=== PATIENT | male | born 1970 | race Hispanic/Latino ===

== ENCOUNTER 2018-06-29 17:10 | Emergency (ER) | payer MEDICAID ==
[2018-06-29] MEDS ORDERED: LABETALOL 20 MG/4 ML DISP.SYRIN IV ONE (18:44)
== END 2018-06-29 20:41 | disposition home or self-care (01) ==
LOC: EDH 17:10
DX: S40.012A Contusion of left shoulder, initial encounter (principal); I10 Essential (primary) hypertension; V49.49XA Driver injured in collision with other motor vehicles in traffic accident, initial encounter; Y93.89 Activity, other specified; Y92.410 Unspecified street and highway as the place of occurrence of the external cause; Y99.8 Other external cause status
CPT/HCPCS: 72125; 96374

== ENCOUNTER 2021-07-18 22:25 | Emergency (ER) | payer MEDICAID ==
[~2021-07-18] VITALS: Ht 182.9 cm; Wt 97.5 kg
[2021-07-18] MEDS ORDERED: ONDANSETRON 4MG INJ ONE (22:37)
[2021-07-18] MEDS ORDERED: 0.9%NACL 1000ML 1,000 ML IV ONE (22:37)
[2021-07-18] MEDS ORDERED: ACETAMINOPHEN 500 MG TABLET ONE (22:37)
[2021-07-18 22:57] LABS: BASOPHILS % (AUTO) 0.4 % (0.0-5.0); EOSINOPHILS % (AUTO) 6.4 % (0.0-8.0); HEMATOCRIT 48.9 % (42-54); LYMPHOCYTES % (AUTO) 7.1 % (21.0-51.0); MEAN CORPUSCULAR HEMOGLOBIN 29.5 pg (27.0-33.0); MEAN CORPUSCULAR HGB CONC 32.9 g/dL (32.0-36.0); MEAN CORPUSCULAR VOLUME 89.7 fL (79-99); MONOCYTES % (AUTO) 6.6 % (3.0-13.0); NEUTROPHILS % (AUTO) 78.9 % (40.0-77.0); PLATELET COUNT (AUTO) 239 K/uL (130-400); RED BLOOD CELL COUNT(AUTO) 5.45 MIL/uL (4.50-6.20); RED CELL DISTRIBUTION WIDTH 12.9 % (11.0-15.5); WHITE BLOOD COUNT (AUTO) 8.2 K/uL (4.8-10.8)
[2021-07-18] MEDS ORDERED: CEFTRIAXONE 1G VIAL IVP ONE (23:00)
[2021-07-18] MEDS ORDERED: IBUPROFEN 600 MG TABLET PO ONE (23:00)
[2021-07-18] MEDS ORDERED: ALBUTEROL 0.083% 2.5 MG/3 ML INH IH ONE ×2 (23:00)
[2021-07-18] MEDS ORDERED: AZITHROMYCIN 250 MG TABLET PO ONE (23:00)
[2021-07-18] MEDS ORDERED: GUAIFENESIN-CODEINE 5 ML SYRUP PO ONE (23:00)
[2021-07-18] MEDS ORDERED: SOLU-MEDROL 125MG VIAL IVP ONE (23:00)
[2021-07-18] MEDS ORDERED: IPRATROPIUM/ALBUTEROL SULFATE 3 ML SOLUTION IH ONE (23:00)
[2021-07-18 23:11] LABS: CREATININE 0.9 mg/dL (0.5-1.5); POTASSIUM 4.1 mmol/L (3.5-5.1)
[2021-07-18 23:15] LABS: APPEARANCE,URINE Clear (CLEAR); BILIRUBIN,URINE Negative (NEGATIVE); COLOR,URINE Yellow (YELLOW); GLUCOSE, URINE (UA) Negative (NEGATIVE); KETONES,URINE Negative (NEGATIVE); LEUKOCYTE ESTERASE ,URINE Negative (NEGATIVE); NITRATE,URINE Negative (NEGATIVE); OCCULT BLOOD,URINE Negative (NEGATIVE); PH,URINE 6.5 (5.0-8.0); PROTEIN,URINE Negative (NEGATIVE); UROBILINOGEN,URINE 0.2 mg/dL (0.2-1.0)
[2021-07-18 23:20] LABS: ALBUMIN 3.3 g/dL (3.5-5.0); BILIRUBIN,TOTAL 0.5 mg/dL (0.2-1.0); TOTAL PROTEIN, SERUM 6.5 g/dL (6.0-8.3)
[2021-07-18] MEDS ORDERED: AMOX1TAB16 PO (23:28)
[2021-07-18] MEDS ORDERED: D-ME1POW16 PO (23:28)
[2021-07-18] MEDS ORDERED: PRED20TA3 PO (23:28)
[2021-07-18] MEDS ORDERED: ALBU8.5H8 IH (23:28)
[2021-07-18 23:57] VITALS: BP 138/79
[2021-07-20] MEDS ORDERED: BACI1CAP6 PO (15:35)
[2021-07-20] MEDS ORDERED: DICY20TA2 PO (15:35)
[2021-07-20] MEDS ORDERED: ONDA4TAB10 PO (15:35)
== END 2021-07-19 00:14 | disposition home or self-care (01) ==
LOC: EDH 22:25
DX: J40 Bronchitis, not specified as acute or chronic (principal); E86.0 Dehydration; R50.9 Fever, unspecified; F17.200 Nicotine dependence, unspecified, uncomplicated; I10 Essential (primary) hypertension; Z20.822 Contact with and (suspected) exposure to COVID-19
CPT/HCPCS: 36415; 71045; 80053; 81003; 83605; 84484; 85025; 87040 ×2; 87635; 87804 ×2; 87880; 94640; 96361; 96374; 96375; 99284; C9803; J0696; J2405; J2930; J7030

== ENCOUNTER 2021-07-20 13:16 | Emergency (ER) | payer MEDICAID ==
[~2021-07-20] VITALS: Ht 182.9 cm; Wt 98.0 kg
[~2021-07-20 13:16] MED LIST: ALBU8.5H8 IH; AMOX1TAB16 PO; D-ME1POW16 PO; PRED20TA3 PO
[2021-07-20 13:43] LABS: BASOPHILS % (AUTO) 0.2 % (0.0-5.0); EOSINOPHILS % (AUTO) 0.1 % (0.0-8.0); HEMATOCRIT 47.5 % (42-54); LYMPHOCYTES % (AUTO) 8.3 % (21.0-51.0); MEAN CORPUSCULAR HEMOGLOBIN 29.7 pg (27.0-33.0); MEAN CORPUSCULAR HGB CONC 33.5 g/dL (32.0-36.0); MEAN CORPUSCULAR VOLUME 88.6 fL (79-99); MONOCYTES % (AUTO) 7.3 % (3.0-13.0); NEUTROPHILS % (AUTO) 83.6 % (40.0-77.0); PLATELET COUNT (AUTO) 273 K/uL (130-400); RED BLOOD CELL COUNT(AUTO) 5.36 MIL/uL (4.50-6.20); WHITE BLOOD COUNT (AUTO) 13.1 K/uL (4.8-10.8)
[2021-07-20] MEDS: 0.9%NACL 1000ML 1,000 ML IV ONE (13:49)
[2021-07-20] MEDS: ONDANSETRON 4MG INJ ONE (13:49)
[2021-07-20 14:03] LABS: CARBON DIOXIDE 27 mmol/L (21-32); CHLORIDE 104 mmol/L (101-111); GLOMERULAR FILTR. RATE CALC 84 mL/min (>60); GLUCOSE,RANDOM 112 mg/dL (70-105); POTASSIUM 3.4 mmol/L (3.5-5.1); SODIUM SERUM 141 mmol/L (136-145); UREA NITROGEN, BLOOD 17 mg/dL (7-18)
[2021-07-20 14:08] LABS: ALANINE AMINOTRANSFERASE 32 U/L (12-78); ALBUMIN 3.3 g/dL (3.5-5.0); ASPARTATE AMINOTRANSFERASE 24 U/L (10-37); BILIRUBIN,TOTAL 0.4 mg/dL (0.2-1.0); TOTAL PROTEIN, SERUM 6.8 g/dL (6.0-8.3)
[2021-07-20 14:15] LABS: LIPASE < 50 U/L (114-286)
[2021-07-20] MEDS ORDERED: IOHEXOL-350 75 ML VIAL IV ONE (14:27)
[2021-07-20] MEDS: DICYCLOMINE 20MG (10MG/ML) AMP IM STA (14:32)
[2021-07-20] MEDS: PANTOPRAZOLE 40 MG/VIAL IVP ONE (14:33)
[2021-07-20] MEDS: MORPHINE 2 MG SYG IVP ONE (14:33)
[2021-07-20 14:52] LABS: APPEARANCE,URINE Clear (CLEAR); BILIRUBIN,URINE Negative (NEGATIVE); COLOR,URINE Yellow (YELLOW); GLUCOSE, URINE (UA) Negative (NEGATIVE); KETONES,URINE Trace mg/dL (NEGATIVE); LEUKOCYTE ESTERASE ,URINE Negative (NEGATIVE); NITRATE,URINE Negative (NEGATIVE); OCCULT BLOOD,URINE Negative (NEGATIVE); PH,URINE 7.5 (5.0-8.0); PROTEIN,URINE Trace mg/dL (NEGATIVE)
[2021-07-20 15:19] VITALS: BP 142/77
[2021-07-20] MEDS ORDERED: DICY20TA2 PO (15:35)
[2021-07-20] MEDS ORDERED: BACI1CAP6 PO (15:35)
[2021-07-20] MEDS ORDERED: ONDA4TAB10 PO (15:35)
[2021-07-20 15:52] LABS: BACTERIA,URINE Few /HPF (None Seen); MUCUS,URINE Rare LPF (None Seen); RBC,URINE 0-1 /HPF (0-1); SQUAMOUS EPITHELIAL CELL,UR Rare /HPF (0-2); WBC,URINE 0-1 /HPF (0-1)
== END 2021-07-20 15:58 | disposition home or self-care (01) ==
LOC: EDH 13:16
DX: K52.9 Noninfective gastroenteritis and colitis, unspecified (principal); I10 Essential (primary) hypertension; Z79.899 Other long term (current) drug therapy
CPT/HCPCS: 36415; 74177; 80053; 81001; 83690; 84484; 85025; 93005; 96361; 96372; 96374; 96375; 99285; J0500; J2405; J7030; Q9967; S0164; C9113